=== PATIENT | female | born 1965 | race Caucasian/White ===

== ENCOUNTER → 2020-09-23 15:49 | Outpatient (BNVA) | payer MEDICAID, SELFPAY | PROVIDERS: Visit Provider Counselor Professional | DX: F43.12 Post-traumatic stress disorder, chronic (principal); F33.2 Major depressive disorder, recurrent severe without psychotic features; F90.0 Attention-deficit hyperactivity disorder, predominantly inattentive type | CPT/HCPCS: 90834 ==

== ENCOUNTER → 2020-10-07 15:12 | Outpatient (BNVA) | payer MEDICAID, SELFPAY | PROVIDERS: Visit Provider Counselor Professional | DX: F43.12 Post-traumatic stress disorder, chronic (principal); F33.2 Major depressive disorder, recurrent severe without psychotic features; F90.0 Attention-deficit hyperactivity disorder, predominantly inattentive type | CPT/HCPCS: 90832 ==

== ENCOUNTER → 2020-10-15 15:06 | Outpatient (BNVA) | payer MEDICAID, SELFPAY | PROVIDERS: Visit Provider Counselor Professional | DX: F43.12 Post-traumatic stress disorder, chronic (principal); F33.2 Major depressive disorder, recurrent severe without psychotic features; F90.0 Attention-deficit hyperactivity disorder, predominantly inattentive type | CPT/HCPCS: 90834 ==

== ENCOUNTER → 2020-10-25 14:14 | Outpatient (BNVA) | payer MEDICAID, SELFPAY | PROVIDERS: Visit Provider Psychiatry & Neurology Psychiatry | DX: F43.12 Post-traumatic stress disorder, chronic (principal); F41.1 Generalized anxiety disorder; F33.2 Major depressive disorder, recurrent severe without psychotic features; F10.21 Alcohol dependence, in remission; F15.21 Other stimulant dependence, in remission; F17.200 Nicotine dependence, unspecified, uncomplicated | CPT/HCPCS: 99204 ==

== ENCOUNTER → 2020-10-29 15:17 | Outpatient (BNVA) | payer MEDICAID, SELFPAY | PROVIDERS: Visit Provider Counselor Professional | DX: F43.12 Post-traumatic stress disorder, chronic (principal); F33.2 Major depressive disorder, recurrent severe without psychotic features; F90.0 Attention-deficit hyperactivity disorder, predominantly inattentive type | CPT/HCPCS: 90834 ==

== ENCOUNTER → 2020-11-05 15:05 | Outpatient (BNVA) | payer MEDICAID, SELFPAY | PROVIDERS: Visit Provider Counselor Professional | DX: F43.12 Post-traumatic stress disorder, chronic (principal); F33.2 Major depressive disorder, recurrent severe without psychotic features; F90.0 Attention-deficit hyperactivity disorder, predominantly inattentive type | CPT/HCPCS: 90834 ==

== ENCOUNTER → 2020-11-12 15:13 | Outpatient (BNVA) | payer MEDICAID, SELFPAY | PROVIDERS: Visit Provider Counselor Professional | DX: F43.12 Post-traumatic stress disorder, chronic (principal); F33.2 Major depressive disorder, recurrent severe without psychotic features; F90.2 Attention-deficit hyperactivity disorder, combined type | CPT/HCPCS: 90834 ==

== ENCOUNTER → 2020-11-19 15:21 | Outpatient (BNVA) | payer MEDICAID, SELFPAY | PROVIDERS: Visit Provider Counselor Professional | DX: F43.12 Post-traumatic stress disorder, chronic (principal); F33.2 Major depressive disorder, recurrent severe without psychotic features; F90.0 Attention-deficit hyperactivity disorder, predominantly inattentive type | CPT/HCPCS: 90832 ==

== ENCOUNTER → 2020-11-26 14:05 | Outpatient (BNVA) | payer MEDICAID, SELFPAY | PROVIDERS: Visit Provider Counselor Professional | DX: F43.12 Post-traumatic stress disorder, chronic (principal); F33.2 Major depressive disorder, recurrent severe without psychotic features; F90.0 Attention-deficit hyperactivity disorder, predominantly inattentive type | CPT/HCPCS: 90832 ==

== ENCOUNTER 2020-12-02 20:00 | Outpatient (CLI) | payer MEDICAID, SELFPAY | END 2020-12-02 20:01 | LOC: SLEEP 12-03 08:13 | PROVIDERS: Visit Provider Anesthesiology Pain Medicine | DX: F43.12 Post-traumatic stress disorder, chronic (principal); F33.2 Major depressive disorder, recurrent severe without psychotic features; F90.0 Attention-deficit hyperactivity disorder, predominantly inattentive type | CPT/HCPCS: 90832; 95810 ==

== ENCOUNTER → 2020-12-31 08:04 | Outpatient (BNVA) | payer MEDICAID, SELFPAY | PROVIDERS: Visit Provider Psychiatry & Neurology Psychiatry | DX: F41.1 Generalized anxiety disorder (principal); F33.2 Major depressive disorder, recurrent severe without psychotic features; F17.200 Nicotine dependence, unspecified, uncomplicated; F15.21 Other stimulant dependence, in remission; F10.21 Alcohol dependence, in remission; F43.12 Post-traumatic stress disorder, chronic | CPT/HCPCS: 99214 ==

== ENCOUNTER → 2021-03-10 07:20 | Outpatient (BNVA) | payer MEDICAID, SELFPAY | PROVIDERS: Visit Provider Psychiatry & Neurology Psychiatry | DX: F33.2 Major depressive disorder, recurrent severe without psychotic features (principal); F41.1 Generalized anxiety disorder; F17.210 Nicotine dependence, cigarettes, uncomplicated; F15.21 Other stimulant dependence, in remission; F10.21 Alcohol dependence, in remission; F43.12 Post-traumatic stress disorder, chronic | CPT/HCPCS: 99214 ==

== ENCOUNTER → 2021-04-22 08:26 | Outpatient (BNVA) | payer MEDICAID, SELFPAY | PROVIDERS: Visit Provider Psychiatry & Neurology Psychiatry | DX: F33.2 Major depressive disorder, recurrent severe without psychotic features (principal); F41.1 Generalized anxiety disorder; F43.12 Post-traumatic stress disorder, chronic; F17.200 Nicotine dependence, unspecified, uncomplicated; F15.21 Other stimulant dependence, in remission; F10.21 Alcohol dependence, in remission | CPT/HCPCS: 99214 ==

== ENCOUNTER → 2021-06-05 08:40 | Outpatient (BNVA) | payer MEDICAID, SELFPAY | PROVIDERS: Visit Provider Psychiatry & Neurology Psychiatry | DX: F33.2 Major depressive disorder, recurrent severe without psychotic features (principal); F41.1 Generalized anxiety disorder; F43.12 Post-traumatic stress disorder, chronic; F15.21 Other stimulant dependence, in remission; F10.21 Alcohol dependence, in remission; F17.200 Nicotine dependence, unspecified, uncomplicated | CPT/HCPCS: 99214 ==

== ENCOUNTER → 2022-09-29 14:09 | Outpatient (BNVA) | payer MEDICAID, SELFPAY | PROVIDERS: Visit Provider Registered Nurse | DX: Z79.899 Other long term (current) drug therapy (principal); F33.2 Major depressive disorder, recurrent severe without psychotic features; F41.1 Generalized anxiety disorder; F43.12 Post-traumatic stress disorder, chronic; F10.21 Alcohol dependence, in remission; F15.21 Other stimulant dependence, in remission | CPT/HCPCS: 80053; 80061; 82306; 82607; 83036 ==